=== PATIENT | male | born 1940 | race Two or more races ===

== ENCOUNTER 2016-10-23 17:29 | Inpatient (IN) | payer MEDICARE, MEDICAID ==
[~2016-10-23] VITALS: Ht 172.7 cm; Wt 79.8 kg
[2016-10-23 17:54] LABS: BASOPHILS # (AUTO) 0.1 /CMM (0.0-0.2); BASOPHILS % (AUTO) 0.9 % (0.0-2.0); EOSINOPHILS # (AUTO) 0.3 /CMM (0.0-0.7); EOSINOPHILS % (AUTO) 4.1 % (0.0-6.0); HEMATOCRIT 41 % (39-51); HEMOGLOBIN 13.4 g/dL (13.5-17.5); LYMPHOCYTES # (AUTO) 1.6 /CMM (0.8-4.8); MEAN CORPUSCULAR HEMOGLOBIN 29 PG (26.0-33.0); MEAN CORPUSCULAR HGB CONC 33 g/dl (31.0-36.0); MEAN CORPUSCULAR VOLUME 89 fL (80-96); MONOCYTES # (AUTO) 0.5 /CMM (0.1-1.30); MONOCYTES % (AUTO) 8.5 % (2.0-12.0); NEUTROPHILS # (AUTO) 3.8 /CMM (1.8-8.9); NEUTROPHILS % (AUTO) 61.5 % (43.0-81.0); PLATELET COUNT (AUTO) 211 /CMM (150-450); RDW COEFFICIENT OF VARIATION 13.8 (11.5-15.0); RED BLOOD CELL COUNT(AUTO) 4.59 MIL/uL (4.5-6.0); WHITE BLOOD COUNT (AUTO) 6.3 K/uL (4.3-11.0)
[2016-10-23 17:59] LABS: CALCIUM, SERUM 8.4 mg/dL (8.5-10.1); CARBON DIOXIDE 29 mmol/L (21-32); CHLORIDE 104 mmol/L (98-107); CREATININE 1.1 mg/dL (0.6-1.3); GLUCOSE 150 mg/dL (74-106); POTASSIUM 3.7 mmol/L (3.5-5.1); SODIUM SERUM 141 mmol/L (136-145); UREA NITROGEN, BLOOD 17 mg/dL (7-18)
[2016-10-23 18:00] LABS: ALCOHOL, BLOOD < 3 mg/dL (0-0)
[2016-10-23] MEDS ORDERED: QUET25TA PO (18:01)
[2016-10-23] MEDS ORDERED: MAGN400O6 PO (18:01)
[2016-10-23] MEDS ORDERED: TAMS0.4C34 PO (18:01)
[2016-10-23] MEDS ORDERED: DOCU-25 PO (18:01)
[2016-10-23] MEDS ORDERED: MEMA28CA PO (18:01)
[2016-10-23] MEDS ORDERED: AMIN30LI4 PO (18:01)
[2016-10-23] MEDS ORDERED: CALC-108 PO (18:01)
[2016-10-23] MEDS ORDERED: [UNRECOGNIZED DRUG - CODE] PO (18:01)
[2016-10-23] MEDS ORDERED: BISA10SU8 RC (18:01)
[2016-10-23] MEDS ORDERED: ACET-868 PO (18:01)
[2016-10-23] MEDS ORDERED: PROC-11 PO (18:01)
[2016-10-23 18:25] LABS: APPEARANCE,URINE Clear (CLEAR); BILIRUBIN,URINE Negative (NEGATIVE); BLOOD, URINE Moderate Ery/uL (NEGATIVE); COLOR,URINE Yellow (YELLOW); KETONES,URINE Negative (NEGATIVE); LEUKOCYTE ESTERASE ,URINE Small (NEGATIVE); NITRITE, URINE Positive (NEGATIVE); PROTEIN,URINE 100 mg/dl (NEGATIVE); UGLUCOSE Negative (NEGATIVE); UROBILINOGEN,URINE 0.2 EU/dL (0.2)
[2016-10-23 18:40] LABS: BACTERIA,URINE 3+ /HPF (None Seen); SQUAMOUS EPITHELIAL CELL,UR Few /HPF (None Seen)
[2016-10-23] MEDS ORDERED: NITROFURANTOIN/NITROFURAN MAC 100 MG CAPSULE ONE (18:59)
[2016-10-23] MEDS ORDERED: NITROFURANTOIN/NITROFURAN MAC 100 MG CAPSULE PO ONE (19:00)
[2016-10-23 20:30] VITALS: BP 133/68
[2016-10-23] MEDS ORDERED: ACETAMINOPHEN 325 MG TABLET PO PRN ×2 (21:00)
[2016-10-23] MEDS ORDERED: TEMAZEPAM 7.5 MG CAPSULE PO PRN (21:00)
[2016-10-23] MEDS ORDERED: MAGNESIUM HYDROXIDE 30 ML UDC PO PRN ×2 (21:00)
[2016-10-23] MEDS ORDERED: MAG HYDROX/AL HYDROX/SIMETH 30 ML UDC PO PRN (21:00)
[2016-10-23] MEDS ORDERED: PROCHLORPERAZINE MALEATE 10 MG TABLET PO PRN (21:00)
[2016-10-23] MEDS ORDERED: LORAZEPAM 0.5 MG TABLET PO PRN (21:00)
[2016-10-23] MEDS ORDERED: BISACODYL SUPP (10 MG) 10 MG/SUPP.RECT SUPP.RECT RC PRN (21:00)
[2016-10-23] MEDS ORDERED: CIPROFLOXACIN HCL 500 MG TABLET ONE (21:21)
[2016-10-23] MEDS: CIPROFLOXACIN HCL 250 MG TABLET PO SCH (21:26)
[2016-10-23 22:16] VITALS: BP 133/68
[2016-10-24 06:54] LABS: BASOPHILS % (AUTO) 0.6 % (0.0-2.0); EOSINOPHILS # (AUTO) 0.3 /CMM (0.0-0.7); EOSINOPHILS % (AUTO) 6.6 % (0.0-6.0); HEMATOCRIT 39 % (39-51); HEMOGLOBIN 13.2 g/dL (13.5-17.5); LYMPHOCYTES # (AUTO) 1.4 /CMM (0.8-4.8); LYMPHOCYTES % (AUTO) 26.2 % (20.0-44.0); MEAN CORPUSCULAR HEMOGLOBIN 30 PG (26.0-33.0); MEAN CORPUSCULAR HGB CONC 34 g/dl (31.0-36.0); MEAN CORPUSCULAR VOLUME 89 fL (80-96); MONOCYTES # (AUTO) 0.5 /CMM (0.1-1.30); MONOCYTES % (AUTO) 10.2 % (2.0-12.0); NEUTROPHILS # (AUTO) 2.9 /CMM (1.8-8.9); NEUTROPHILS % (AUTO) 56.4 % (43.0-81.0); PLATELET COUNT (AUTO) 187 /CMM (150-450); RDW COEFFICIENT OF VARIATION 14.4 (11.5-15.0); RED BLOOD CELL COUNT(AUTO) 4.37 MIL/uL (4.5-6.0); WHITE BLOOD COUNT (AUTO) 5.2 K/uL (4.3-11.0)
[2016-10-24 07:08] LABS: ALANINE AMINOTRANSFERASE 23 U/L (12-78); ALKALINE PHOSPHATASE 67 U/L (46-116); ASPARTATE AMINOTRANSFERASE 17 U/L (15-37); BILIRUBIN,TOTAL 0.7 mg/dL (0.2-1.0); CALCIUM, SERUM 8.4 mg/dL (8.5-10.1); CARBON DIOXIDE 28 mmol/L (21-32); CHLORIDE 107 mmol/L (98-107); GLUCOSE 88 mg/dL (74-106); POTASSIUM 4.1 mmol/L (3.5-5.1); SODIUM SERUM 143 mmol/L (136-145); TOTAL PROTEIN, SERUM 6.7 g/dL (6.4-8.2); UREA NITROGEN, BLOOD 16 mg/dL (7-18)
[2016-10-24 07:21] LABS: CHOLESTEROL 167 mg/dL (<200); HDL CHOLESTEROL 49 mg/dL (40-60); LDL 101 mg/dL (0-99); THYROID STIMULATING HORMONE 1.622 uIU/mL (0.358-3.74); TRIGLYCERIDES 108 mg/dL (30-150)
[2016-10-24 08:00] VITALS: BP 103/59
[2016-10-24] MEDS: CIPROFLOXACIN HCL 250 MG TABLET PO SCH ×2 (08:48→22:03)
[2016-10-24] MEDS: TAMSULOSIN 0.4 MG CAP.SR.24H PO SCH ×2 (08:48→16:44)
[2016-10-24] MEDS: FAMOTIDINE (20 MG) 20 MG TABLET PO SCH ×2 (08:48→22:03)
[2016-10-24] MEDS: MEMANTINE HCL 5 MG TABLET PO SCH ×2 (08:48→16:44)
[2016-10-24] MEDS: DOCUSATE SODIUM 100 MG CAPSULE PO SCH (08:48)
[2016-10-24] MEDS: CALCIUM CARB 600MG /VIT D 1 EACH TABLET PO SCH (08:48)
[2016-10-24] MEDS: PROSOURCE / PROSTAT (PYXIS) 30 ML UDC PO SCH ×2 (10:01→16:44)
[2016-10-24 16:00] VITALS: BP 113/61
[2016-10-24] MEDS: QUETIAPINE FUMARATE 25 MG TABLET PO SCH (16:44)
[2016-10-24 20:00] VITALS: BP 118/72
[2016-10-25 08:14] VITALS: BP 100/60
[2016-10-25] MEDS: CIPROFLOXACIN HCL 250 MG TABLET PO SCH ×2 (08:45→21:00)
[2016-10-25] MEDS: QUETIAPINE FUMARATE 25 MG TABLET PO SCH ×2 (08:45→16:38)
[2016-10-25] MEDS: CALCIUM CARB 600MG /VIT D 1 EACH TABLET PO SCH (08:45)
[2016-10-25] MEDS: PROSOURCE / PROSTAT (PYXIS) 30 ML UDC PO SCH ×2 (08:45→16:54)
[2016-10-25] MEDS: TAMSULOSIN 0.4 MG CAP.SR.24H PO SCH ×2 (08:45→16:40)
[2016-10-25] MEDS: DOCUSATE SODIUM 100 MG CAPSULE PO SCH (08:45)
[2016-10-25] MEDS: MEMANTINE HCL 5 MG TABLET PO SCH ×2 (08:45→16:39)
[2016-10-25] MEDS: FAMOTIDINE (20 MG) 20 MG TABLET PO SCH ×2 (09:05→21:23)
[2016-10-25 16:00] VITALS: BP 109/66
[2016-10-25 20:12] VITALS: BP 98/39
[2016-10-26 08:00] VITALS: BP 101/50
[2016-10-26] MEDS: PROSOURCE / PROSTAT (PYXIS) 30 ML UDC PO SCH ×2 (08:49→17:23)
[2016-10-26] MEDS: QUETIAPINE FUMARATE 25 MG TABLET PO SCH ×2 (08:50→17:09)
[2016-10-26] MEDS: CIPROFLOXACIN HCL 250 MG TABLET PO SCH ×2 (08:50→21:13)
[2016-10-26] MEDS: DOCUSATE SODIUM 100 MG CAPSULE PO SCH (08:50)
[2016-10-26] MEDS: CALCIUM CARB 600MG /VIT D 1 EACH TABLET PO SCH (08:50)
[2016-10-26] MEDS: TAMSULOSIN 0.4 MG CAP.SR.24H PO SCH ×2 (08:50→17:16)
[2016-10-26] MEDS: FAMOTIDINE (20 MG) 20 MG TABLET PO SCH ×2 (08:50→21:13)
[2016-10-26] MEDS: MEMANTINE HCL 5 MG TABLET PO SCH ×2 (08:50→17:09)
[2016-10-26 16:00] VITALS: BP 105/63
[2016-10-26 22:21] VITALS: BP 99/61
[2016-10-27 08:00] VITALS: BP 100/58
[2016-10-27] MEDS: TAMSULOSIN 0.4 MG CAP.SR.24H PO SCH ×2 (08:23→16:23)
[2016-10-27] MEDS: MEMANTINE HCL 5 MG TABLET PO SCH ×2 (08:23→16:23)
[2016-10-27] MEDS: QUETIAPINE FUMARATE 25 MG TABLET PO SCH ×2 (08:23→16:23)
[2016-10-27] MEDS: DOCUSATE SODIUM 100 MG CAPSULE PO SCH (08:24)
[2016-10-27] MEDS: FAMOTIDINE (20 MG) 20 MG TABLET PO SCH ×2 (08:24→21:40)
[2016-10-27] MEDS: CALCIUM CARB 600MG /VIT D 1 EACH TABLET PO SCH (08:24)
[2016-10-27] MEDS: CIPROFLOXACIN HCL 250 MG TABLET PO SCH ×2 (08:33→21:40)
[2016-10-27] MEDS: PROSOURCE / PROSTAT (PYXIS) 30 ML UDC PO SCH ×2 (08:34→16:24)
[2016-10-27 15:59] VITALS: BP 127/78
[2016-10-27 20:13] VITALS: BP 106/74
[2016-10-28 08:00] VITALS: BP 113/61
[2016-10-28] MEDS: QUETIAPINE FUMARATE 25 MG TABLET PO SCH ×2 (08:47→16:05)
[2016-10-28] MEDS: TAMSULOSIN 0.4 MG CAP.SR.24H PO SCH ×2 (08:47→16:05)
[2016-10-28] MEDS: CIPROFLOXACIN HCL 250 MG TABLET PO SCH ×2 (08:47→20:05)
[2016-10-28] MEDS: MEMANTINE HCL 5 MG TABLET PO SCH ×2 (08:47→16:05)
[2016-10-28] MEDS: PROSOURCE / PROSTAT (PYXIS) 30 ML UDC PO SCH ×2 (08:47→16:05)
[2016-10-28] MEDS: DOCUSATE SODIUM 100 MG CAPSULE PO SCH (08:47)
[2016-10-28] MEDS: FAMOTIDINE (20 MG) 20 MG TABLET PO SCH ×2 (08:47→20:05)
[2016-10-28] MEDS: CALCIUM CARB 600MG /VIT D 1 EACH TABLET PO SCH (08:48)
[2016-10-28 16:08] VITALS: BP 127/73
[2016-10-28 20:12] VITALS: BP 97/61
[2016-10-29 08:00] VITALS: BP 110/61
[2016-10-29] MEDS: CALCIUM CARB 600MG /VIT D 1 EACH TABLET PO SCH (08:11)
[2016-10-29] MEDS: DOCUSATE SODIUM 100 MG CAPSULE PO SCH (08:11)
[2016-10-29] MEDS: QUETIAPINE FUMARATE 25 MG TABLET PO SCH ×2 (08:11→16:21)
[2016-10-29] MEDS: PROSOURCE / PROSTAT (PYXIS) 30 ML UDC PO SCH ×2 (08:11→16:22)
[2016-10-29] MEDS: FAMOTIDINE (20 MG) 20 MG TABLET PO SCH ×2 (08:11→20:35)
[2016-10-29] MEDS: MEMANTINE HCL 5 MG TABLET PO SCH ×2 (08:11→16:21)
[2016-10-29] MEDS: TAMSULOSIN 0.4 MG CAP.SR.24H PO SCH ×2 (08:11→16:21)
[2016-10-29] MEDS ORDERED: CEFTRIAXONE 1 G VIAL IM SCH (12:00)
[2016-10-29 15:37] VITALS: BP 117/75
[2016-10-29] MEDS: NITROFURANTOIN/NITROFURAN MAC 100 MG CAPSULE PO SCH ×2 (16:20→20:35)
[2016-10-29 20:00] VITALS: BP 119/53
[2016-10-30 08:00] VITALS: BP 115/74
[2016-10-30] MEDS: DOCUSATE SODIUM 100 MG CAPSULE PO SCH (08:20)
[2016-10-30] MEDS: MEMANTINE HCL 5 MG TABLET PO SCH ×2 (08:20→16:30)
[2016-10-30] MEDS: QUETIAPINE FUMARATE 25 MG TABLET PO SCH ×2 (08:20→16:30)
[2016-10-30] MEDS: CALCIUM CARB 600MG /VIT D 1 EACH TABLET PO SCH (08:20)
[2016-10-30] MEDS: TAMSULOSIN 0.4 MG CAP.SR.24H PO SCH ×2 (08:20→16:30)
[2016-10-30] MEDS: FAMOTIDINE (20 MG) 20 MG TABLET PO SCH ×2 (09:04→20:56)
[2016-10-30] MEDS: NITROFURANTOIN/NITROFURAN MAC 100 MG CAPSULE PO SCH ×2 (09:04→20:56)
[2016-10-30] MEDS: PROSOURCE / PROSTAT (PYXIS) 30 ML UDC PO SCH ×2 (09:06→16:31)
[2016-10-30 15:57] VITALS: BP 122/65
[2016-10-30 20:00] VITALS: BP 117/52
[2016-10-31 08:00] VITALS: BP 128/77
[2016-10-31] MEDS: CALCIUM CARB 600MG /VIT D 1 EACH TABLET PO SCH (08:34)
[2016-10-31] MEDS: MEMANTINE HCL 5 MG TABLET PO SCH ×2 (08:34→17:44)
[2016-10-31] MEDS: QUETIAPINE FUMARATE 25 MG TABLET PO SCH ×3 (08:35→17:44)
[2016-10-31] MEDS: DOCUSATE SODIUM 100 MG CAPSULE PO SCH (08:35)
[2016-10-31] MEDS: FAMOTIDINE (20 MG) 20 MG TABLET PO SCH ×2 (08:35→20:58)
[2016-10-31] MEDS: NITROFURANTOIN/NITROFURAN MAC 100 MG CAPSULE PO SCH ×2 (08:35→20:58)
[2016-10-31] MEDS: TAMSULOSIN 0.4 MG CAP.SR.24H PO SCH ×2 (08:35→17:44)
[2016-10-31] MEDS: PROSOURCE / PROSTAT (PYXIS) 30 ML UDC PO SCH ×2 (13:14→17:58)
[2016-10-31 16:00] VITALS: BP 107/65
[2016-10-31 20:00] VITALS: BP 104/60
[2016-11-01 07:49] VITALS: BP 100/60
[2016-11-01] MEDS: NITROFURANTOIN/NITROFURAN MAC 100 MG CAPSULE PO SCH ×2 (08:18→20:29)
[2016-11-01] MEDS: TAMSULOSIN 0.4 MG CAP.SR.24H PO SCH ×2 (08:18→17:19)
[2016-11-01] MEDS: CALCIUM CARB 600MG /VIT D 1 EACH TABLET PO SCH (08:18)
[2016-11-01] MEDS: DOCUSATE SODIUM 100 MG CAPSULE PO SCH (08:18)
[2016-11-01] MEDS: FAMOTIDINE (20 MG) 20 MG TABLET PO SCH ×2 (08:18→20:29)
[2016-11-01] MEDS: QUETIAPINE FUMARATE 25 MG TABLET PO SCH ×3 (08:18→17:19)
[2016-11-01] MEDS: MEMANTINE HCL 5 MG TABLET PO SCH ×2 (08:18→17:45)
[2016-11-01] MEDS: PROSOURCE / PROSTAT (PYXIS) 30 ML UDC PO SCH ×2 (08:20→17:00)
[2016-11-01 15:46] VITALS: BP 100/72
[2016-11-01 20:06] VITALS: BP 108/72
[2016-11-02] MEDS: TAMSULOSIN 0.4 MG CAP.SR.24H PO SCH ×2 (07:52→16:13)
[2016-11-02] MEDS: DOCUSATE SODIUM 100 MG CAPSULE PO SCH (07:52)
[2016-11-02] MEDS: FAMOTIDINE (20 MG) 20 MG TABLET PO SCH ×2 (07:52→21:08)
[2016-11-02] MEDS: QUETIAPINE FUMARATE 25 MG TABLET PO SCH ×3 (07:52→16:13)
[2016-11-02] MEDS: CALCIUM CARB 600MG /VIT D 1 EACH TABLET PO SCH (07:52)
[2016-11-02] MEDS: NITROFURANTOIN/NITROFURAN MAC 100 MG CAPSULE PO SCH ×2 (07:52→21:08)
[2016-11-02] MEDS: MEMANTINE HCL 5 MG TABLET PO SCH ×2 (07:53→16:13)
[2016-11-02] MEDS: PROSOURCE / PROSTAT (PYXIS) 30 ML UDC PO SCH ×2 (07:56→16:14)
[2016-11-02 08:00] VITALS: BP 100/53
[2016-11-02 16:00] VITALS: BP 132/62
[2016-11-02 19:35] VITALS: BP 114/57
[2016-11-03 08:00] VITALS: BP 115/70
[2016-11-03] MEDS: FAMOTIDINE (20 MG) 20 MG TABLET PO SCH (08:23)
[2016-11-03] MEDS: DOCUSATE SODIUM 100 MG CAPSULE PO SCH (08:23)
[2016-11-03] MEDS: CALCIUM CARB 600MG /VIT D 1 EACH TABLET PO SCH (08:23)
[2016-11-03] MEDS: TAMSULOSIN 0.4 MG CAP.SR.24H PO SCH (08:23)
[2016-11-03] MEDS: MEMANTINE HCL 5 MG TABLET PO SCH (08:23)
[2016-11-03] MEDS: QUETIAPINE FUMARATE 25 MG TABLET PO SCH ×2 (08:24→12:24)
[2016-11-03] MEDS: PROSOURCE / PROSTAT (PYXIS) 30 ML UDC PO SCH (08:30)
[2016-11-03] MEDS: NITROFURANTOIN/NITROFURAN MAC 100 MG CAPSULE PO SCH (08:43)
== END 2016-11-03 13:30 | DRG 885 ==
LOC: ER 17:31 → GPS 20:29
PROVIDERS: ADMIT Psychiatry & Neurology Psychiatry; ATTEND Nurse Practitioner Acute Care
DX: F29 Unspecified psychosis not due to a substance or known physiological condition (principal); F03.91 Unspecified dementia, unspecified severity, with behavioral disturbance; N39.0 Urinary tract infection, site not specified; B96.89 Other specified bacterial agents as the cause of diseases classified elsewhere; N40.0 Benign prostatic hyperplasia without lower urinary tract symptoms; Z16.24 Resistance to multiple antibiotics; Z73.6 Limitation of activities due to disability; B96.20 Unspecified Escherichia coli [E. coli] as the cause of diseases classified elsewhere; R73.9 Hyperglycemia, unspecified
CPT/HCPCS: 36415; 80048-TC; 80053-TC; 80061-TC; 80305; 81000-TC; 84443-TC; 85025-TC; 87081-TC; 87086-TC; 87186-TC; A4606; G0480; J0696; Q0164; Z7610

== ENCOUNTER 2016-12-22 18:47 | Emergency (ER) | payer MEDICARE, MEDICAID ==
[~2016-12-22] VITALS: Ht 172.7 cm; Wt 86.2 kg
[~2016-12-22 18:47] MED LIST: ACET-868 PO; AMIN30LI4 PO; BISA10SU8 RC; CALC-108 PO; DOCU-25 PO; MAGN400O6 PO; MEMA28CA PO; PROC-11 PO; QUET25TA PO; TAMS0.4C34 PO; [UNRECOGNIZED DRUG - CODE] PO
--- NOTE | 2016-12-22 19:05 | NUR ---
PT A/OX4 BREATHING EFFORTLESSLY ON ROOM AIR, PT STATES HE DOES NOT KNOW WHY HE WAS SENT HERE AND HE FEELS PERFECTLY FINE, IV PLACED LABS DRAWN, PT IN GOWN ON MONITOR, URINE COLLECTED, MD MADE AWARE WILL CONTINUE TO MONITOR.
--- NOTE | 2016-12-22 19:12 | NUR ---
IV STARTED ON RIGHT AC 18G, BLOOD DRAWN AND SENT TO LAB
[2016-12-22 19:21] LABS: BASOPHILS % (AUTO) 0.5 % (0.0-2.0); EOSINOPHILS # (AUTO) 0.4 /CMM (0.0-0.7); EOSINOPHILS % (AUTO) 5.8 % (0.0-6.0); HEMATOCRIT 43 % (39-51); HEMOGLOBIN 14.6 g/dL (13.5-17.5); LYMPHOCYTES # (AUTO) 1.4 /CMM (0.8-4.8); LYMPHOCYTES % (AUTO) 23.3 % (20.0-44.0); MEAN CORPUSCULAR HEMOGLOBIN 31 PG (26.0-33.0); MEAN CORPUSCULAR HGB CONC 34 g/dl (31.0-36.0); MEAN CORPUSCULAR VOLUME 89 fL (80-96); MONOCYTES # (AUTO) 0.6 /CMM (0.1-1.30); NEUTROPHILS # (AUTO) 3.7 /CMM (1.8-8.9); NEUTROPHILS % (AUTO) 60.4 % (43.0-81.0); PLATELET COUNT (AUTO) 189 /CMM (150-450); RDW COEFFICIENT OF VARIATION 14.6 (11.5-15.0); WHITE BLOOD COUNT (AUTO) 6.1 K/uL (4.3-11.0)
[2016-12-22 19:33] LABS: CALCIUM, SERUM 8.8 mg/dL (8.5-10.1); CARBON DIOXIDE 26 mmol/L (21-32); CHLORIDE 107 mmol/L (98-107); CREATININE 1.5 mg/dL (0.6-1.3); GLUCOSE 133 mg/dL (74-106); POTASSIUM 3.8 mmol/L (3.5-5.1); SODIUM SERUM 142 mmol/L (136-145); UREA NITROGEN, BLOOD 26 mg/dL (7-18)
[2016-12-22 19:34] LABS: MAGNESIUM 2.1 mg/dL (1.8-2.4)
[2016-12-22 19:35] LABS: INR 0.89 (0.87-1.13); PROTHROMBIN TIME 9.3 SECS (9.5-12.7)
[2016-12-22 19:42] LABS: TROPONIN I < 0.017 ng/mL (0.00-0.056)
[2016-12-22 19:47] LABS: THYROID STIMULATING HORMONE 1.767 uIU/mL (0.358-3.74)
--- NOTE | 2016-12-22 20:41 | NUR ---
CALLED [facility] FOR S TRANSPORT TO [facility]. TRIP #[id number]
--- NOTE | 2016-12-22 20:41 | NUR ---
ETA FOR ABULANCE IS 90 MINUTES
--- NOTE | 2016-12-22 22:20 | NUR ---
PT REPORT GIVEN TO EMT BY RUBEN VALENCIA
[2016-12-22 22:52] VITALS: BP 114/80
== END 2016-12-22 22:53 | disposition home or self-care (01) ==
LOC: ER 18:50
DX: F03.90 Unspecified dementia, unspecified severity, without behavioral disturbance, psychotic disturbance, mood disturbance, and anxiety (principal); N28.9 Disorder of kidney and ureter, unspecified; I10 Essential (primary) hypertension; E11.9 Type 2 diabetes mellitus without complications; K21.9 Gastro-esophageal reflux disease without esophagitis; N40.0 Benign prostatic hyperplasia without lower urinary tract symptoms; I48.91 Unspecified atrial fibrillation; F29 Unspecified psychosis not due to a substance or known physiological condition; Z88.0 Allergy status to penicillin
CPT/HCPCS: 36415; 71010; 80048; 83735; 84443; 84484; 85025; 85730; 93005 ×2; 99285; A4606; Z7610

== ENCOUNTER 2016-12-31 23:47 | Inpatient (IN) | payer MEDICARE, MEDICAID ==
[~2016-12-31] VITALS: Ht 190.5 cm; Wt 112.5 kg
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
--- NOTE | 2016-12-31 23:55 | NUR ---
IRIS PRESCOTT OFFICER DISTOR AND OFFICER RICHARD [id number]
[2017-01-01 00:16] LABS: BASOPHILS % (AUTO) 0.4 % (0.0-2.0); EOSINOPHILS # (AUTO) 0.3 /CMM (0.0-0.7); EOSINOPHILS % (AUTO) 5.3 % (0.0-6.0); HEMATOCRIT 45 % (39-51); HEMOGLOBIN 15.1 g/dL (13.5-17.5); LYMPHOCYTES # (AUTO) 1.6 /CMM (0.8-4.8); MEAN CORPUSCULAR HEMOGLOBIN 30 PG (26.0-33.0); MEAN CORPUSCULAR HGB CONC 34 g/dl (31.0-36.0); MEAN CORPUSCULAR VOLUME 89 fL (80-96); MONOCYTES # (AUTO) 0.9 /CMM (0.1-1.30); MONOCYTES % (AUTO) 13.2 % (2.0-12.0); NEUTROPHILS # (AUTO) 3.8 /CMM (1.8-8.9); NEUTROPHILS % (AUTO) 57.1 % (43.0-81.0); PLATELET COUNT (AUTO) 180 /CMM (150-450); RDW COEFFICIENT OF VARIATION 15.3 (11.5-15.0); RED BLOOD CELL COUNT(AUTO) 4.99 MIL/uL (4.5-6.0); WHITE BLOOD COUNT (AUTO) 6.6 K/uL (4.3-11.0)
[2017-01-01 00:23] LABS: APPEARANCE,URINE CLEAR (CLEAR); BILIRUBIN,URINE NEGATIVE (NEGATIVE); BLOOD, URINE TRACE Ery/uL (NEGATIVE); KETONES,URINE NEGATIVE (NEGATIVE); LEUKOCYTE ESTERASE ,URINE TRACE (NEGATIVE); NITRITE, URINE POSITIVE (NEGATIVE); PROTEIN,URINE NEGATIVE (NEGATIVE); UGLUCOSE NEGATIVE (NEGATIVE); UROBILINOGEN,URINE 0.2 EU/dL (0.2)
[2017-01-01 00:33] LABS: CALCIUM, SERUM 9.1 mg/dL (8.5-10.1); CARBON DIOXIDE 28 mmol/L (21-32); CHLORIDE 105 mmol/L (98-107); CREATININE 1.2 mg/dL (0.6-1.3); GLUCOSE 116 mg/dL (74-106); POTASSIUM 3.8 mmol/L (3.5-5.1); SODIUM SERUM 141 mmol/L (136-145); UREA NITROGEN, BLOOD 20 mg/dL (7-18)
[2017-01-01 00:34] LABS: ACETAMINOPHEN 0 ug/ml (10-30); ALANINE AMINOTRANSFERASE 28 U/L (12-78); ALBUMIN 3.6 g/dL (3.4-5.0); ALCOHOL, BLOOD < 3 mg/dL (0-0); ALKALINE PHOSPHATASE 75 U/L (46-116); ASPARTATE AMINOTRANSFERASE 22 U/L (15-37); BILIRUBIN,DIRECT 0.1 mg/dL (0.0-0.2); BILIRUBIN,TOTAL 0.5 mg/dL (0.2-1.0); TOTAL PROTEIN, SERUM 7.6 g/dL (6.4-8.2)
[2017-01-01 00:35] LABS: COLOR,URINE STRAW (YELLOW)
[2017-01-01 00:38] LABS: BACTERIA,URINE 3+ /HPF (None Seen); RBC,URINE 0-2 /HPF (0-2); SQUAMOUS EPITHELIAL CELL,UR Few /HPF (None Seen)
--- NOTE | 2017-01-01 01:10 | NUR ---
PT SLEEPING IN NAD, VSS WILL CONTINUE TO MONITOR.
--- NOTE | 2017-01-01 02:46 | NUR ---
PT SLEEPING IN BED IN NO APPARENT DISTRESS, ART IS HERE FOR A PSYCH EVAL ON PATIENT, MD MADE AWARE WILL CONTINUE TO MONITOR.
--- NOTE | 2017-01-01 04:00 | NUR ---
GPS/RN NOTE: ADMITTED FROM [facility], INITIALLY CAME FROM [facility] , CAME TO THE UNIT ACCOMPANIED BY MALE ER STAFF. ADMITTED ON 5150 FOR GD. PER HOLD PATIENT WAS AGITATED, THROWING FOOD, TRYING TO HIT STAFF AND NON-COMPLIANT. UPON FACE TO FACE, PATIENT WAS DISORIENTED, AGGRESSIVE, TRYING TO HIT STAFF AGAIN, THROWING FOOD. PATIENT WAS ALSO ANXIOUS. PATIENT WAS PLACED ON THE DALTON-CHAIR, PATIENT RAN AWAY AND HID SOMEWHERE IN ANOTHER PATIENT'S ROOM. PATIENT IS AWAKE, ALERT, CONFUSED, ANXIOUS. COOPERATIVE. PATIENT HAS UNSTEADY GAIT. RESPIRATION EVEN, BREATHING PATTERN NON-LABORED, SHOWS NO S/S OF DISCOMFORT. BELONGINGS WERE INVENTORIED AND CHECKED FOR CONTRABAND, VALUABLES PUT TO SAFE. PATIENT IS UNDER THE PSYCHIATRIC CARE OF DR. KNOTT, AND UNDER THE MEDICAL CARE OF DR. RICO. SKIN ASSESSMENT DONE, NOTED GENERALIZED SKIN DISCOLORATION, OTHERWISE SKIN IS INTACT. BED LOCKED AND PLACED ON LOWEST POSITION. WILL CONTINUE TO MONITOR Q 15 MINS. TO MAINTAIN SAFETY.
[2017-01-01] MEDS ORDERED: MAGNESIUM HYDROXIDE 30 ML UDC PO PRN ×2 (05:00→16:00)
[2017-01-01] MEDS ORDERED: TEMAZEPAM 7.5 MG CAPSULE PO PRN (05:00)
[2017-01-01] MEDS ORDERED: MAG HYDROX/AL HYDROX/SIMETH 30 ML UDC PO PRN (05:00)
[2017-01-01] MEDS ORDERED: ACETAMINOPHEN 325 MG TABLET PO PRN (05:00)
--- NOTE | 2017-01-01 05:37 | NUR ---
GPS/RN NOTE: PAGED DR. RICO FOR MED RECONCILIATION
--- NOTE | 2017-01-01 06:18 | NUR ---
GPS/RN NOTE: PAGED DR. RICO FOR THE 2ND TIME ABOUT MEDICATION RECONCILIATION. AWAITING CALL BACK.
--- NOTE | 2017-01-01 06:19 | NUR ---
GPS/RN NOTE: INSPECTOR PUBLICATIONS SAID THAT PATIENT REFUSED VITALS TO BE CHECKED, VALENTINO JUÁREZ MADE AWARE.
--- NOTE | 2017-01-01 06:54 | NUR ---
GPS/RN NOTE: MRSA SCREEN DONE.
--- NOTE | 2017-01-01 06:55 | NUR ---
GPS/RN NOTE: MED RECON NEEDS FOLLOW UP. NO CALL BACK YET FROM DR. RICO. ENDORSED TO DAY SHIFT NURSE.
[2017-01-01 08:00] VITALS: BP 101/66
[2017-01-01] MEDS: LORAZEPAM 0.5 MG TABLET PO PRN (09:54)
--- NOTE | 2017-01-01 10:40 | NUR ---
DR. FIGUEROA CAME IN THE UNIT AND TOLD TO RECONCILE MEDS.
--- NOTE | 2017-01-01 15:46 | NUR ---
Initial Discharge Patient was brought in from [address] [address], and wishes to return upon discharge. KI contacted Luiz from [facility] and will await a response / follow up. KI will also contact pt's niece Pema at [phone] to verify information. KI will work to arrange safe and proper discharge.
[2017-01-01 16:00] VITALS: BP 119/63
[2017-01-01] MEDS ORDERED: BISACODYL SUPP (10 MG) 10 MG/SUPP.RECT SUPP.RECT RC PRN (16:00)
[2017-01-01] MEDS ORDERED: CALCIUM CARB 250MG /VITAMIN D 1 UDTAB PO SCH (17:00)
[2017-01-01] MEDS ORDERED: MEMANTINE HCL 5 MG TABLET PO SCH (17:00)
[2017-01-01] MEDS ORDERED: TAMSULOSIN 0.4 MG CAP.SR.24H PO SCH (17:00)
[2017-01-01] MEDS ORDERED: PROSOURCE / PROSTAT (PYXIS) 30 ML UDC PO SCH (17:00)
[2017-01-01 17:42] LABS: CHOLESTEROL 185 mg/dL (<200); HDL CHOLESTEROL 45 mg/dL (40-60); LDL 118 mg/dL (0-99); TRIGLYCERIDES 141 mg/dL (30-150)
[2017-01-01] MEDS: DIVALPROEX SODIUM 250 MG TABLET.DR PO SCH (17:58)
[2017-01-01 20:00] VITALS: BP 122/83
[2017-01-01] MEDS: OLANZAPINE 5 MG/TAB.RAPDIS PO SCH (20:41)
--- NOTE | 2017-01-02 00:41 | NUR ---
GPS/RN NOTE: PATIENT AWAKE, NOT ABLE TO SLEEP. TEMAZEPAM 7.5 MG CAP PO REFUSED TO TAKE, PATIENT THREW PILL ON THE FLOOR.
[2017-01-02] MEDS: LORAZEPAM 0.5 MG TABLET PO PRN ×5 (02:45→09:12)
[2017-01-02 08:00] VITALS: BP 110/59
[2017-01-02] MEDS ORDERED: DOCUSATE SODIUM 100 MG CAPSULE PO SCH (09:00)
[2017-01-02] MEDS: OLANZAPINE 5 MG/TAB.RAPDIS PO SCH ×3 (09:11→20:25)
[2017-01-02] MEDS: DIVALPROEX SODIUM 250 MG TABLET.DR PO SCH ×2 (09:11→13:08)
[2017-01-02 09:30] LABS: BASOPHILS % (AUTO) 0.6 % (0.0-2.0); EOSINOPHILS # (AUTO) 0.2 /CMM (0.0-0.7); HEMATOCRIT 45 % (39-51); LYMPHOCYTES # (AUTO) 2.2 /CMM (0.8-4.8); LYMPHOCYTES % (AUTO) 28.7 % (20.0-44.0); MEAN CORPUSCULAR HEMOGLOBIN 30 PG (26.0-33.0); MEAN CORPUSCULAR HGB CONC 34 g/dl (31.0-36.0); MEAN CORPUSCULAR VOLUME 89 fL (80-96); MONOCYTES # (AUTO) 0.6 /CMM (0.1-1.30); MONOCYTES % (AUTO) 7.6 % (2.0-12.0); NEUTROPHILS # (AUTO) 4.7 /CMM (1.8-8.9); NEUTROPHILS % (AUTO) 60.1 % (43.0-81.0); PLATELET COUNT (AUTO) 189 /CMM (150-450); RDW COEFFICIENT OF VARIATION 15.3 (11.5-15.0); RED BLOOD CELL COUNT(AUTO) 5.02 MIL/uL (4.5-6.0); WHITE BLOOD COUNT (AUTO) 7.8 K/uL (4.3-11.0)
[2017-01-02 09:50] LABS: ALANINE AMINOTRANSFERASE 26 U/L (12-78); ALBUMIN 3.5 g/dL (3.4-5.0); ALKALINE PHOSPHATASE 61 U/L (46-116); ASPARTATE AMINOTRANSFERASE 22 U/L (15-37); BILIRUBIN,TOTAL 1.3 mg/dL (0.2-1.0); CALCIUM, SERUM 8.9 mg/dL (8.5-10.1); CARBON DIOXIDE 26 mmol/L (21-32); CHLORIDE 104 mmol/L (98-107); CHOLESTEROL 192 mg/dL (<200); CREATININE 1.2 mg/dL (0.6-1.3); GLUCOSE 216 mg/dL (74-106); HDL CHOLESTEROL 47 mg/dL (40-60); LDL 119 mg/dL (0-99); POTASSIUM 4.1 mmol/L (3.5-5.1); SODIUM SERUM 139 mmol/L (136-145); TOTAL PROTEIN, SERUM 7.3 g/dL (6.4-8.2); TRIGLYCERIDES 174 mg/dL (30-150); UREA NITROGEN, BLOOD 17 mg/dL (7-18)
[2017-01-02 16:00] VITALS: BP 132/79
[2017-01-02 17:27] LABS: BASOPHILS % (AUTO) 0.5 % (0.0-2.0); EOSINOPHILS # (AUTO) 0.2 /CMM (0.0-0.7); EOSINOPHILS % (AUTO) 3.1 % (0.0-6.0); HEMATOCRIT 44 % (39-51); HEMOGLOBIN 14.7 g/dL (13.5-17.5); LYMPHOCYTES # (AUTO) 1.4 /CMM (0.8-4.8); LYMPHOCYTES % (AUTO) 21.2 % (20.0-44.0); MEAN CORPUSCULAR HEMOGLOBIN 30 PG (26.0-33.0); MEAN CORPUSCULAR HGB CONC 34 g/dl (31.0-36.0); MEAN CORPUSCULAR VOLUME 90 fL (80-96); MONOCYTES # (AUTO) 0.6 /CMM (0.1-1.30); MONOCYTES % (AUTO) 9.1 % (2.0-12.0); NEUTROPHILS # (AUTO) 4.4 /CMM (1.8-8.9); NEUTROPHILS % (AUTO) 66.1 % (43.0-81.0); PLATELET COUNT (AUTO) 198 /CMM (150-450); RDW COEFFICIENT OF VARIATION 15.4 (11.5-15.0); RED BLOOD CELL COUNT(AUTO) 4.92 MIL/uL (4.5-6.0); WHITE BLOOD COUNT (AUTO) 6.7 K/uL (4.3-11.0)
[2017-01-02] MEDS: DIVALPROEX SODIUM 500 MG TABLET.DR PO SCH (17:34)
[2017-01-02 17:39] LABS: CARBON DIOXIDE 26 mmol/L (21-32); CHLORIDE 103 mmol/L (98-107); GLUCOSE 112 mg/dL (74-106); MAGNESIUM 2.5 mg/dL (1.8-2.4); POTASSIUM 3.9 mmol/L (3.5-5.1); SODIUM SERUM 138 mmol/L (136-145); UREA NITROGEN, BLOOD 18 mg/dL (7-18)
[2017-01-02 20:00] VITALS: BP 129/82
[2017-01-02 21:59] LABS: APPEARANCE,URINE CLEAR (CLEAR); BILIRUBIN,URINE NEGATIVE (NEGATIVE); BLOOD, URINE TRACE-INTA Ery/uL (NEGATIVE); COLOR,URINE YELLOW (YELLOW); KETONES,URINE NEGATIVE (NEGATIVE); LEUKOCYTE ESTERASE ,URINE 1+ (NEGATIVE); NITRITE, URINE POSITIVE (NEGATIVE); PROTEIN,URINE NEGATIVE (NEGATIVE); UGLUCOSE NEGATIVE (NEGATIVE); UROBILINOGEN,URINE 0.2 EU/dL (0.2)
[2017-01-02 22:24] LABS: RBC,URINE 0-2 /HPF (0-2)
[2017-01-02 22:25] LABS: BACTERIA,URINE Few /HPF (None Seen); SQUAMOUS EPITHELIAL CELL,UR Rare /HPF (None Seen)
[2017-01-03 08:00] VITALS: BP 103/68
[2017-01-03] MEDS: OLANZAPINE 5 MG/TAB.RAPDIS PO SCH ×3 (08:18→21:37)
[2017-01-03] MEDS: DIVALPROEX SODIUM 250 MG TABLET.DR PO SCH ×2 (08:18→12:22)
--- NOTE | 2017-01-03 09:00 | NUR ---
[id number]: PT IS SEXUALLY INAPPROPRIATE BY TOUCHING HIMSELF. MAKING INAPPROPRIATE REMARK TO FEMALE STAFF.
[2017-01-03] MEDS ORDERED: OLANZAPINE 5 MG/TAB.RAPDIS PO SCH (13:00)
[2017-01-03 16:00] VITALS: BP 116/67
[2017-01-03] MEDS: DIVALPROEX SODIUM 500 MG TABLET.DR PO SCH (16:28)
--- NOTE | 2017-01-03 17:56 | NUR ---
[id number]: NOTIFIED DR. FIGUEROA ABOUT URINE CULTURE ON 01/02/17: GRAM NEGATIVE RODS= > 100,000 AND PENDING SENSITIVITY RESULTS. PENDING RETURN PHONE CALL.
[2017-01-03 22:54] VITALS: BP 137/73
--- NOTE | 2017-01-04 00:55 | NUR ---
GPS RN NOTES: 0035- PAGED DR. RICO TO RELAY URINE CULTURE AND SENSITIVITY RESULTS. 0050- DR. RICO CALLED BACK. RESIDENTIAL ENERGY AUDITOR-TINO RELAYED THE RESULTS. ORDER FOR MACROBID 100 MG Q12H TO BE STARTED AT 0900 01/03-PLACED ON [employer]. WILL ENDORSE TO DAY SHIFT NURSE. WILL CONTINUE TO MONITOR PATIENT.
[2017-01-04 08:00] VITALS: BP 115/66
[2017-01-04] MEDS: DIVALPROEX SODIUM 250 MG TABLET.DR PO SCH ×2 (08:35→12:11)
[2017-01-04] MEDS: OLANZAPINE 5 MG/TAB.RAPDIS PO SCH ×3 (08:35→21:30)
[2017-01-04] MEDS: NITROFURANTOIN/NITROFURAN MAC 100 MG CAPSULE PO SCH ×2 (08:35→21:30)
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
[2017-01-04 16:00] VITALS: BP 101/70
[2017-01-04 16:20] VITALS: BP 101/70
[2017-01-04] MEDS: DIVALPROEX SODIUM 500 MG TABLET.DR PO SCH (16:28)
--- NOTE | 2017-01-04 19:30 | NUR ---
GPS RN NOTE, RECEIVED PATIENT AWAKE AND IN BED NO S/S OR COMPLAINTS OF PAIN AT THIS TIME. PATIENT IS DISPLAYING NO S/S OF APPARENT DISTRESS AT THIS TIME. PATIENT BREATHING IS UNLABORED WITH EQUAL RISE AND FALL OF THE CHEST. PATIENT IS ALERT AND ORIENTED X 2-3 ON ROOM AIR WITH A SPOO2 95 %. PATIENT IS MED COMPLIANT, DISORGANIZED, WANDERS FROM ROOM TO ROOM, AND NEEDS REORIENTATION. PATIENT DENIES SUICIDE IDEATIONS AND HOMICIDAL IDEATIONS AT THIS TIME. PATIENT ASSISTED WITH TURNING AND REPOSITIONING Q2HR AND PRN FOR COMFORT AND CIRCULATION. PATIENT HAS NO NEEDS AT THIS TIME. PATIENT EDUCATED ON THE USE OF THE CALL VALENTINE. PATIENT BED SIDE RAILS UP X 2 FOR SAFETY. PATIENT BED IS LOCKED AND LOW WILL CONTINUE TO MONITOR AND MAINTAIN SAFETY Q15 MIN WITH THE HELP OF STAFF.
[2017-01-04 20:04] VITALS: BP 104/61
[2017-01-05] MEDS: LORAZEPAM 0.5 MG TABLET PO PRN (07:05)
--- NOTE | 2017-01-05 07:05 | NUR ---
GPS RN NOTE, PATIENT HAS A COMPLAINT OF FEELING ANXIOUS AND IS REQUESTING ATIVAN AT THIS TIME. PATIENT VITAL SIGNS ARE STABLE. GAVE ATIVAN 0.5MG PO Q6 HR PRN ORDERED. WILL REASSESS FOR ANXIETY AND I WILL CONTINUE TO MONITOR THIS PATIENT.
[2017-01-05 08:00] VITALS: BP 137/84
[2017-01-05] MEDS: DIVALPROEX SODIUM 250 MG TABLET.DR PO SCH ×2 (09:30→14:15)
[2017-01-05] MEDS: NITROFURANTOIN/NITROFURAN MAC 100 MG CAPSULE PO SCH (09:30)
[2017-01-05] MEDS: OLANZAPINE 5 MG/TAB.RAPDIS PO SCH ×3 (09:31→21:37)
--- NOTE | 2017-01-05 14:45 | NUR ---
KI spoke to Luiz from [facility] who stated he is looking at acceptance for patient at [place] or [place]. KI will follow up tomorrow.
--- NOTE | 2017-01-05 14:46 | NUR ---
KI called pt's niece, Pema at [phone] and left a voicemail for her with contact information.
[2017-01-05] MEDS ORDERED: CEFTRIAXONE 1 G in IV D5W 50 ML IV SCH (15:30)
[2017-01-05 15:37] VITALS: BP 100/62
[2017-01-05] MEDS: DIVALPROEX SODIUM 500 MG TABLET.DR PO SCH (18:00)
[2017-01-05] MEDS: CEFTRIAXONE 1 G VIAL IM SCH (18:05)
[2017-01-05 19:57] VITALS: BP 118/59
[2017-01-06 08:00] VITALS: BP 115/61
--- NOTE | 2017-01-06 08:13 | NUR ---
RN-CO: Patient is cooperative, redirectable, no sexually inappropriate behavior observe. Discontinued 1:[address] Beltran.
[2017-01-06] MEDS: DIVALPROEX SODIUM 250 MG TABLET.DR PO SCH ×2 (08:30→13:05)
[2017-01-06] MEDS: OLANZAPINE 5 MG/TAB.RAPDIS PO SCH ×3 (08:30→21:26)
[2017-01-06 16:00] VITALS: BP 100/63
[2017-01-06] MEDS: DIVALPROEX SODIUM 500 MG TABLET.DR PO SCH (16:16)
[2017-01-06] MEDS: CEFTRIAXONE 1 G VIAL IM SCH (16:40)
[2017-01-06 20:00] VITALS: BP 104/60
[2017-01-07 07:07] LABS: BASOPHILS % (AUTO) 0.4 % (0.0-2.0); EOSINOPHILS # (AUTO) 0.4 /CMM (0.0-0.7); EOSINOPHILS % (AUTO) 6.1 % (0.0-6.0); HEMATOCRIT 43 % (39-51); HEMOGLOBIN 14.5 g/dL (13.5-17.5); LYMPHOCYTES # (AUTO) 2.5 /CMM (0.8-4.8); LYMPHOCYTES % (AUTO) 38.2 % (20.0-44.0); MEAN CORPUSCULAR HEMOGLOBIN 31 PG (26.0-33.0); MEAN CORPUSCULAR HGB CONC 34 g/dl (31.0-36.0); MEAN CORPUSCULAR VOLUME 90 fL (80-96); MONOCYTES # (AUTO) 0.7 /CMM (0.1-1.30); MONOCYTES % (AUTO) 10.7 % (2.0-12.0); NEUTROPHILS # (AUTO) 2.9 /CMM (1.8-8.9); NEUTROPHILS % (AUTO) 44.6 % (43.0-81.0); PLATELET COUNT (AUTO) 180 /CMM (150-450); RDW COEFFICIENT OF VARIATION 14.9 (11.5-15.0); RED BLOOD CELL COUNT(AUTO) 4.73 MIL/uL (4.5-6.0); WHITE BLOOD COUNT (AUTO) 6.5 K/uL (4.3-11.0)
[2017-01-07 07:23] LABS: VALPROIC ACID 51 ug/mL (50-100)
[2017-01-07 07:24] LABS: ALANINE AMINOTRANSFERASE 30 U/L (12-78); ALBUMIN 3.1 g/dL (3.4-5.0); ALKALINE PHOSPHATASE 57 U/L (46-116); ASPARTATE AMINOTRANSFERASE 27 U/L (15-37); BILIRUBIN,TOTAL 0.8 mg/dL (0.2-1.0); CALCIUM, SERUM 8.8 mg/dL (8.5-10.1); CARBON DIOXIDE 26 mmol/L (21-32); CHLORIDE 106 mmol/L (98-107); CREATININE 1.2 mg/dL (0.6-1.3); GLUCOSE 90 mg/dL (74-106); POTASSIUM 3.9 mmol/L (3.5-5.1); SODIUM SERUM 142 mmol/L (136-145); TOTAL PROTEIN, SERUM 6.9 g/dL (6.4-8.2); UREA NITROGEN, BLOOD 22 mg/dL (7-18)
[2017-01-07 08:00] VITALS: BP 100/66
[2017-01-07] MEDS: DIVALPROEX SODIUM 250 MG TABLET.DR PO SCH (08:39)
[2017-01-07] MEDS: OLANZAPINE 5 MG/TAB.RAPDIS PO SCH (08:40)
--- NOTE | 2017-01-07 09:25 | NUR ---
DR. NOEL GAVE AN ORDER TO D/C HOLD AND D/C TO [facility]. PT. WITHOUT DISTRESS, DENIES SUICIDAL AND HOMICIDAL AND TO FOLLOW UP WITH PSYCH AND MEDICAL DOCTORS. Addendum: 01/07/17 at 0941 by JUNO PERES RN PER DR. NOEL TO CONTINUE SAME MEDS INCLUDING PRN.
--- NOTE | 2017-01-07 09:56 | NUR ---
ABDOULAYE WICK MADE AWARE OF THE DISCHARGE AND SAID OK FOR DISCHARGE AND RECONCILED THE MEDS.
--- NOTE | 2017-01-07 12:47 | NUR ---
RACK WORKER-NOTES PATIENT D/C'd TO [facility] TODAY. DR. NOEL AND MUSHROOM SPAWN MAKER DELANO AWARE AND AGREES OF THE DISCHARGE. REPORT WAS GIVEN TO EMILY( TREATMENT PLANT OPERATOR). PER SW SHE LEFT VOICE MSG. ON PATIENT RESPONSIBLE DEMOCRAT ([employer]) REGARDING THE DISCHARGE.PATIENT DID NOT VERBALIZE SI/HI DENIES VISUAL/AUDITORY HALLUCINATIONS AT THE TIME OF DISCHARGE. PATIENT LEFT THE UNIT IN STABLE CONDITION WITH ALL HIS BELONGINGS.RUBBER COVERING MACHINE OPERATOR BY AMBULANCE VIA GURNEY WITH TWO STAFF ASSIST.
--- NOTE | 2017-01-07 12:53 | NUR ---
Discharge Note Patient will be discharged to [facility], [address] [place] [id number]; [phone]. attempted to contact patients Pema perez at [phone] but was met with a voicemail. Patient will follow up with his psychiatrist, Dr. Beltran [address] [place] [address], [phone] on Wednesday01/13/17 at 1:30pm. Patient will also be seen by his cesspool cleaner at the facility, Dr. Dr. Morel; [address] [place] [address].
--- NOTE | 2017-01-07 14:24 | NUR ---
FLOWER POT PRESS OPERATOR-NOTES SPOKE TO PATIENT RESPONSIBLE PERSON [employer] [place] AT [phone] AND MADE AWARE OF PATIENT DISCHARGE TO [facility].
== END 2017-01-07 12:49 | DRG 885 ==
LOC: ER 23:48 → GPS 01-01 03:35
PROVIDERS: ADMIT Psychiatry & Neurology Psychosomatic Medicine; ATTEND Family Medicine
DX: F25.0 Schizoaffective disorder, bipolar type (principal); F03.91 Unspecified dementia, unspecified severity, with behavioral disturbance; D64.9 Anemia, unspecified; N39.0 Urinary tract infection, site not specified; E11.9 Type 2 diabetes mellitus without complications; F29 Unspecified psychosis not due to a substance or known physiological condition; B96.20 Unspecified Escherichia coli [E. coli] as the cause of diseases classified elsewhere; F41.9 Anxiety disorder, unspecified; I10 Essential (primary) hypertension; K21.9 Gastro-esophageal reflux disease without esophagitis; Z79.84 Long term (current) use of oral hypoglycemic drugs; Z79.899 Other long term (current) drug therapy; Z88.0 Allergy status to penicillin; N40.1 Benign prostatic hyperplasia with lower urinary tract symptoms
CPT/HCPCS: 36415; 80048-TC; 80053-TC; 80061-TC; 80076-TC; 80164-TC; 80305; 81000-TC; 83735-TC; 85025-TC; 87081-TC; 87086-TC; 87186-TC; G0480; J0696; J7060